=== PATIENT | female | born 1950 | race Caucasian/White ===

== ENCOUNTER 2019-09-06 07:57 | Day surgery (SDC) | payer MEDICARE, OTHER ==
[2019-09-06] VITALS (9 sets, daily range): BP systolic 103–132; BP diastolic 46–78
[~2019-09-06] VITALS: Ht 162.6 cm; Wt 87.0 kg
[~2019-09-06 07:57] MED LIST: ALLO300T10 PO; ASPI81TA52 PO; ATOR40TA71 PO; FISH OIL PO; GLUC100017 PO; LEVO125T PO; LISI-600 PO; METF500T PO; NAPR-996 PO; VENL-190 PO; [UNRECOGNIZED DRUG - OTHER] PO
[2019-09-06] MEDS ORDERED: normal saline 1,000 ML IV SCH (08:30)
[2019-09-06] MEDS ORDERED: diphenhydrAMINE 25mg capsule PO PRN (08:30)
[2019-09-06] MEDS ORDERED: SITA25TA3 PO (08:47)
[2019-09-06] MEDS ORDERED: METF-438 PO (08:47)
[2019-09-06] MEDS ORDERED: MV-M1TAB19 PO (08:47)
[2019-09-06] MEDS ORDERED: LISI10TA4 PO (08:47)
[2019-09-06] MEDS ORDERED: CLOP75TA33 PO (08:47)
[2019-09-06] MEDS ORDERED: LEVO75TA PO (08:47)
[2019-09-06] MEDS ORDERED: VENL75CA61 PO (08:47)
[2019-09-06 08:48] LABS: BASOPHILS % (AUTO) 0.4 % (0-1); EOSINOPHILS # (AUTO) 0.2 X10'3 (0-0.9); EOSINOPHILS % (AUTO) 5.9 % (0-6); HEMATOCRIT 34.9 % (35.0-45.0); HEMOGLOBIN 11.2 g/dl (12.0-16.0); LYMPHOCYTES # (AUTO) 1.1 X10'3 (1.1-4.8); LYMPHOCYTES % (AUTO) 29.8 % (21-51); MEAN CORPUSCULAR HEMOGLOBIN 30.8 PG (27.0-31.0); MEAN CORPUSCULAR HGB CONC 32.2 g/dL (33.0-36.5); MEAN CORPUSCULAR VOLUME 95.6 FL (78-98); MONOCYTES # (AUTO) 0.2 X10'3 (0-0.9); MONOCYTES % (AUTO) 5.3 % (2-12); NEUTROPHILS # (AUTO) 2.1 X10'3 (1.8-7.7); NEUTROPHILS % (AUTO) 58.6 % (42-75); PLATELET COUNT 246 X10'3 (140-440); RED BLOOD COUNT 3.66 X10'6 (4.20-5.60); RED CELL DISTRIBUTION WIDTH 16.1 % (11.5-14.5); WHITE BLOOD COUNT 3.7 X10'3 (4.5-11.0)
[2019-09-06] MEDS ORDERED: midazolam 2 mg/2 ml injection ONE ×2 (08:57→09:45)
[2019-09-06] MEDS ORDERED: iohexol 350MG/ML 100ml bottle IV ONE (08:58)
[2019-09-06] MEDS ORDERED: fentaNYL/PF 50MCG/1 ML 2ML syringe ONE (08:58)
[2019-09-06] MEDS ORDERED: iohexol 350 MG/ML 50ML vial IV ONE ×2 (08:58→10:13)
[2019-09-06] MEDS ORDERED: heparin 1,000unit/ml 10ml vial 10 ML ONE (08:58)
[2019-09-06] MEDS ORDERED: LIDOcaine 1% (10mg/ml)w/preservative injection 20ml MDV ONE (08:58)
[2019-09-06 09:00] LABS: ALBUMIN 3.9 G/DL (3.4-5.0); ANION GAP 11 (8-16); BLOOD UREA NITROGEN 24 MG/DL (7-18); BUN/CREATININE RATIO 14.8 (6.6-38.0); CHLORIDE 104 MMOL/L (99-107); CREATININE 1.62 MG/DL (0.40-0.90); GLUCOSE 147 MG/DL (70-104); MAGNESIUM 1.4 MG/DL (1.5-2.4); POTASSIUM 4.5 MMOL/L (3.5-5.1); SODIUM 140 MMOL/L (135-145); eGFR 31 ML/MIN
[2019-09-06] MEDS ORDERED: ondansetron/PF 4mg/2ml inj IV PRN (11:00)
[2019-09-06] MEDS ORDERED: OXAZEpam 15mg capsule PO PRN (11:00)
[2019-09-06] MEDS ORDERED: normal saline 1000ml 1,000 ML IV SCH (11:00)
[2019-09-06] MEDS ORDERED: HYDROcodone/acetaminophen 10/325mg tab PO PRN (11:00)
[2019-09-06] MEDS ORDERED: proCHLORperazine 10 MG/2 ml inj IV PRN (11:00)
[2019-09-06] MEDS ORDERED: HYDROcodone/acetaminophen 5mg/325mg tablet PO PRN (11:00)
--- NOTE | 2019-09-06 12:00 | NUR ---
Bedside report Fabiola RUBIO[facility] [id number] X4 Addendum: 09/06/19 at 1232 by Nella Young RN Amended: Links added.
--- NOTE | 2019-09-06 12:02 | NUR ---
Problems reprioritized. Patient report given, questions answered & plan of care reviewed with Nella RUBIO.
== END 2019-09-06 14:08 | disposition home or self-care (01) ==
LOC: SSTAY O 07:57
PROVIDERS: ATTEND Internal Medicine Cardiovascular Disease
DX: R06.09 Other forms of dyspnea (principal); I25.110 Atherosclerotic heart disease of native coronary artery with unstable angina pectoris; E11.9 Type 2 diabetes mellitus without complications; E78.5 Hyperlipidemia, unspecified; I10 Essential (primary) hypertension; E03.9 Hypothyroidism, unspecified; Z98.890 Other specified postprocedural states; Z79.899 Other long term (current) drug therapy; Z79.01 Long term (current) use of anticoagulants; Z79.82 Long term (current) use of aspirin; Z87.891 Personal history of nicotine dependence; Z88.8 Allergy status to other drugs, medicaments and biological substances; Z95.5 Presence of coronary angioplasty implant and graft; Z82.49 Family history of ischemic heart disease and other diseases of the circulatory system
CPT/HCPCS: 36415; 80048; 82948; 83735; 85025; 85610; 92978; 93005; 93458; 93571; 99152; 99153; C1753; C1769; C1894; J1644; J2001; J2250; J3010; J7030; Q0163; Q9967; A4620; A6258; C1751; C1760